=== PATIENT | female | born 1960 | race African-American/Black ===

== ENCOUNTER 2016-10-27 11:53 | Inpatient (IN) | payer OTHER ==
[~2016-10-27] VITALS: Ht 157.5 cm; Wt 48.5 kg
--- NOTE | ~2016-10-27 | H ---
[facility] [place] [address] HISTORY AND PHYSICAL Name: ESTEFANIA PÉREZ Room #: 308-P ADM IN M.R.#: [id number] Admission: 10/27/16 Attend Phys: Romina Blake MD Discharge: Date of : 64 Report #: [id number] THIS REPORT FOR: //name// CC: FAM unknown Anuj Blake DATE OF SERVICE: 10/27/2016 PRIMARY CARE DOCTOR: Anuj Flores MD. CHIEF COMPLAINT: Confusion. HISTORY OF PRESENT ILLNESS: The patient is a 56-year-old female with a history of chronic pain and I believe substance abuse, She is currently being followed at [facility], presented to the ER secondary to altered mental status. She was currently at group therapy at [facility] today when she was sent over for altered mental status. She reported feeling "confused." Primarily, she is very lethargic. She claims to have been prescribed hydrocodone, oxycodone, as well Xanax at home, although indicates she "I have none of that." She has had a history of cocaine use and is currently at [facility]. Her urine drug screen was positive for benzodiazepine, cocaine, and opiates. She that she has not used in a long time. I attempted to get a hold of her caseworker protective services with her consent, Anuj Davenport at [phone] a couple of times, but could not get a hold of him. She is following commands and answering questions appropriately. She does not have any focal deficits. As stated, she just appears to be very sleepy at this time, but awakens and is appropriate during my exam. According to the ER documentation, she got up this morning and her son called when she was confused at that time. PAST MEDICAL HISTORY: As stated, chronic pain syndrome, substance abuse, currently at [facility]; rheumatoid arthritis, lupus, chronic kidney disease stage 3-4, chronic anemia, prior CVA, anxiety, and migraines. PAST SURGICAL HISTORY: She has had cholecystectomy and appendectomy. SOCIAL HISTORY: She does not smoke, but does use illicit substances and claims to have previously been prescribed [place], oxycodone and Xanax as indicated on her SEP. She also drinks, but is not able to tell me how much. FAMILY HISTORY: Reviewed and is noncontributory. ALLERGIES: TRAMADOL, IBUPROFEN, TRAZODONE, and LEVAQUIN. MEDICATIONS: Reported medications Xanax 1 mg at bedtime, Ambien 5 mg at bedtime, indapamide 2.5 daily, Trintellix 15 mg at bedtime, oxy p.r.n., [address] [address] HISTORY AND PHYSICAL Name: ESTEFANIA PÉREZ Room #: 308-P [facility] IN M.R.#: [id number] Admission: 10/27/16 Attend Phys: Romina Blake MD Discharge: Date of : 64 Report #: [id number] p.r.n., and Remeron 15 at bedtime. PHYSICAL EXAMINATION: VITAL SIGNS: Temperature of 98, pulse 68, blood pressure 113/60 with O2 sat 100% on room air. GENERAL: She is sleepy, but arousable and follows commands, answers questions and is able to speak in complete sentences. She has no facial droop. HEENT: Normocephalic, atraumatic. Pupils are equally round and reactive to light. No facial droop. Oropharynx is clear. Mucous membranes are dry. NECK: Supple. CARDIOVASCULAR: Regular rate and rhythm. No murmurs. LUNGS: Clear to auscultation bilaterally. No crackles or wheeze. ABDOMEN: Soft, no distention or tenderness. EXTREMITIES: No edema. NEUROLOGIC: As stated, she is sleepy, but she moves all extremities equally and well. She is nonfocal. LABS AND TESTING: Urine drug screen was positive for benzos, cocaine and opiates. UA was positive for leukocyte esterase, 10-30 bacteria, wbc's 0-5. CT of the head without contrast is negative for anything acute. Chest x-ray is negative. White count of 5, H and H of 8.4 and 25, platelets 169. Her previous hemoglobin was 9.6 in July 2015. Her sodium 141, potassium 5.6, and total CO2 of 17. BUN and creatinine of 15 and 4.9. LFTs are negative. Albumin is 2.8. Previous BUN and creatinine are 36 and 3.5 in July of last year. INR is 1.0. ASSESSMENT AND PLAN: 1. Encephalopathy, suspect substance abuse. She has benzos, cocaine and opiates on her drug screen. We will admit her, continue supportive care, consult psychiatry. I attempted to call caseworker protective services twice, Anuj Issac at [phone], but could not get a hold of him. We will hold all her UND[employer]ER HELPER medications at this time. 2. Acute kidney injury on chronic kidney disease secondary to volume depletion. We will continue IV fluids. Check a renal ultrasound and consult renal. 3. Metabolic acidosis. Check an ABG again. Renal will be consulted. 4. Chronic anemia, appears to be lower than her previous levels. We will check iron indices. Continue Protonix and check occult. 5. History of lupus and rheumatoid arthritis. She is currently not on any prednisone at this time or any current treatment as I can see. 6. Prior history of cerebrovascular accident. We will start her on baby aspirin, although she is not on any of that at home. [facility] [address] [place] [address] HISTORY AND PHYSICAL Name: ESTEFANIA PÉREZ Room #: 308-P ADM IN .R.#: [id number] Admission: 10/27/16 Attend Phys: Romian Blake MD Discharge: Date of : 64 Report #: [id number] 7. Anxiety. Again, we will hold her UND[employer] HELPER meds and consult psychiatry. 8. Deep venous thrombosis prophylaxis with SCDs. By: [id number] Romina Blake MD /nt
--- NOTE | ~2016-10-27 | EKG ---
[address] [place] [address] ELECTROCARDIOGRAM REPORT Name: ESTEFANIA PÉREZ Room #: 308-P ADM IN M.R.#: [id number] Admission: 10/27/16 Attend Phys: Shelton Yo DO Discharge: Date of : 64 Report #: [id number] THIS REPORT FOR: //name// [facility] ED Test Date: 2016-10-27 Test Time: 13:40:17 Pat Name: ESTEFANIA PÉREZ Department: Room: 308 Gender: F Molder Punch: Michael LIRIANO : 1960 Requested By: Linda Graham Order Number: [id number] MD: Jamie Jensen Measurements Intervals [place] Rate: 67 P: 55 NE: 158 QRS: 39 QRSD: 91 T: 21 QT: 411 QTc: 434 Interpretive Statements Sinus rhythm Normal tracing Compared to ECG 02/11/2014 16:04:40 No significant changes Electronically Signed On 10-28-2016 8:31:00 CDT by Jamie Jensen [email or web address] <ELECTRONICALLY SIGNED> By: Jamie Jensen MD, [facility] 10/28/16 0831 1340 1340 Jamie Jensen MD, FACC /EPI
--- NOTE | ~2016-10-27 | HC ---
[facility] [place] [address] CONSULTATION Name: ESTEFANIA PÉREZ Room #: 308-P ADM IN M.R.#: [id number] Admission: 10/27/16 Attend Phys: Shelton Yo DO Discharge: Date of : 64 Report #: [id number] THIS REPORT FOR: //name// CC: FAM unknown Shelton Yo DATE OF CONSULTATION: 10/27/2016. CHIEF COMPLAINT: The patient identification is 56-year-old known from previous [facility] admissions, presents with altered mental status and advanced renal insufficiency. HISTORY OF PRESENT ILLNESS: This 56-year-old woman has a longstanding history of systemic lupus erythematosus. Her history dates back to at least 2001 when she was initially seen by Dr. Kiran of our group. She had active systemic lupus erythematosus at that time and has been treated with intravenous cyclophosphamide. She has had a previous methicillin-resistant Staphylococcus aureus bacteremia related to a [place] catheter in 2001. She has been admitted in every subsequent years since 2001 for one or another complications of systemic lupus erythematosus or advancing renal insufficiency. Her systemic lupus erythematosus has been relatively quiescent over the recent past. Her creatinine has been stable in the 3 range. She has had an episode of acute kidney injury with creatinine as high as 5.9. The patient has a complicated medical history which includes aside from lupus erythematosus and renal insufficiency, a history of substance abuse. She has been known to abuse cocaine in the past. She states that she has been under a rehab program for the last 4 months and has not use any substances over that period of time. The patient was found at [facility] where she is being followed for substance abuse in a confused state. She was brought to the Emergency Room because of her confusion. Evaluation in the Emergency Room revealed a drug screen, which was positive for benzodiazepines, cocaine and opiates. The patient expresses utter dismay of this and cannot understand how these could be positive since she has not used any substances. PAST MEDICAL HISTORY: Remarkable as described above. She has a history of hypertension, bacteremia with methicillin-resistant Staphylococcus aureus as described. She has had a previous CVA and sufferes from chronic migraines. She has undergone previous cholecystectomy and appendectomy. FAMILY HISTORY: Negative for renal disease. ALLERGIES: REPORTED TO TRAMADOL, IBUPROFEN, TRAZODONE, LEVAQUIN. MEDICATIONS ON ADMISSION: Includes Xanax, Ambien, indapamide, Trintellix, [address] [address] CONSULTATION Name: ESTEFANIA PÉREZ Room #: 308-P [facility] IN ..#: [id number] Admission: 10/27/16 Attend Phys: Shelton Yo DO Discharge: Date of : 64 Report #: [id number] [place], and Remeron. REVIEW OF SYSTEMS: Remarkable for the absence of pedal edema. She denies epistaxis or headaches. She denies shortness of breath, productive cough, fevers, chills, sweats, shortness of breath, chest pain, palpitations, nausea, vomiting, diarrhea or constipation. PHYSICAL EXAMINATION: GENERAL: Reveals a chronically ill, woman who appears older than her stated age, in no acute distress. VITAL SIGNS: Blood pressure 147/90. Temperature 97.8, pulse 65, respirations 16. SKIN: Warm and dry without rash or erythema. EXTREMITIES: There are chronic arthritic changes involving the hands bilaterally. There is no active information. There is no edema present. There is no gross adenopathy present. HEENT: The head is normocephalic and atraumatic. The sclerae are white and conjunctivae are not injected. The pharynx is benign. NECK: Supple. LUNGS: [place] are grossly clear. CARDIOVASCULAR: Reveals a regular rate and rhythm without rub. ABDOMEN: Soft and nontender. NEUROLOGIC: Reveals the patient to be a good historian with a nonfocal exam. LABORATORY STUDIES: Available at the time of consultation, sodium 141, potassium 5.6, chloride 109, CO2 17, BUN 58, creatinine 4.9, glucose 135. Calcium 9.2. Albumin 2.8. White blood cell count 5000, hemoglobin 8.4, hematocrit 25.3, platelet count 169,000. Urinalysis on admission revealed clear yellow urine, specific gravity 1.020, pH 5.5, 2+ protein, 3+ blood, 1+ leukocytes, 10-30 moderate bacteria seen and culture pending. ASSESSMENT: 1. Altered mental status in this patient with a history of cocaine and substance abuse. The patient presently denies this, but the tox screen is positive. I suspect that she has been using substances again. 2. Chronic kidney disease with acute kidney injury superimposed. Hopefully, her creatinine will improve somewhat with hydration. 3. Suspected urinary tract infection. 4. Longstanding systemic lupus erythematosus. 5. History of previous methicillin-resistant Staphylococcus aureus bacteremia in 2001. PLAN: The patient is being appropriately cultured and treated with antibiotics. We await culture results. We will hydrated her with bicarbonate containing isotonic fluids and follow serial laboratory studies, I and O and daily weights. [address] [address] CONSULTATION Name: ESTEFANIA PÉREZ Room #: 308-P ADM IN M.R.#: [id number] Admission: 10/27/16 Attend Phys: Shelton Yo DO Discharge: Date of : 64 Report #: [id number] Thank you for this challenging consultation. We will follow with you. By: [id number] Walt Alvarez MD /mandy
[2016-10-27 11:53] VITALS: BP 116/69
[~2016-10-27 11:53] MED LIST: ACETAMINOPHEN325 M1 PO; ALPRAZOLAM PO; AMBIEN 10 MG TA10 MG PO; AMBIEN 5 MG TABL5 M1 PO; AMBIEN 5 MG TABL5 MG PO; ASPIRIN325 PO; AUGMENTIN 500-1 EACH PO; BACTRIM DS TAB1 EACH PO; BENADRYL25 MG PO; CEFDINIR PO; CELLCEPT 250 M250 M1 PO; CELLCEPT500 MG PO; CIPRO500 MG PO; CLEOCIN HCL300 MG PO; CYMBALTA30 MG PO; DESYREL50 MG PO; FENTANYL PA25 MCG/HR TRANSDERM; FLAGYL500 MG PO; HYDRALAZINE 2525 M1 PO; HYDROCODON-ACE1 EAC5 PO; HYDROCODON-ACE1 EAC7 PO; HYDROXYCHLOROQ200 M1 PO; HYDROXYZINE HCL50 MG PO; LEVOTHYROXIN0.025 MG PO; MEDROLDOSEPACK PO; NOHOMEMEDICATIONS; ONDANSETRON HCL4 M2 PO; OXYCODONE HCL15 MG PO; OXYCODONE HCL5 M1 PO; OXYCODONE-ACET1 EAC2 PO; OXYCONTIN10 M1 PO; OXYCONTIN20 M1 PO; OXYCONTIN20 MG PO; PEPCID40 MG PO; PERCOCET 10-321 EACH; PERCOCET 10-321 EACH PO; PERCOCET 5-3251 EACH PO; PRAVACHOL40 MG PO; PREDNISONE 10 M10 M1 PO; PREDNISONE 20 M20 M1 PO; PREDNISONE 5 MG5 M1 PO; PREDNISONE PO; PREDNISONE50 MG PO; ROXICODONE5 MG PO; TRAZODONE 150150 M1 PO; VANCOMYCIN PO; XANAX 0.5 MG0.5 M1 PO; XANAX 0.5 MG0.5 MG PO; XANAX PO; XANAX XR1 MG PO; XANAX1 MG PO; ZANAFLEX2 M1 PO; ZOFRAN4 MG PO; ZPAK PO
[2016-10-27 12:27] LABS: URINE BILIRUBIN NEGATIVE (Negative); URINE BLOOD 3+ (Negative); URINE COLOR YELLOW; URINE GLUCOSE-RANDOM* NEGATIVE (Negative); URINE KETONES NEGATIVE (Negative); URINE NITRITE NEGATIVE (Negative); URINE PROTEIN (DIPSTICK) 2+ (Negative); URINE UROBILINOGEN 0.2 E.U./dl (0.2-1.0)
[2016-10-27 12:37] LABS: CASTS None Seen /LPF (None Seen); SQUAMOUS 0-3 Few /LPF (0-3); TRANSITIONAL EPITHEL CELL 0-3 Few /LPF (None Seen); URINE WBC 0-5 Rare /HPF (0-5)
[2016-10-27 12:38] LABS: CRYSTALS None Seen /LPF (None Seen); URINE RBC 0-2 Rare /HPF (0-2)
[2016-10-27 12:42] LABS: AMP/METHAMP Negative (Negative); BARBITURATES Negative (Negative); BENZODIAZEPINES POSITIVE (Negative); COCAINE POSITIVE (Negative); METHADONE Negative (Negative); OPIATES POSITIVE (Negative); PCP Negative (Negative); THC Negative (Negative)
[2016-10-27 13:05] LABS: ABSOLUTE NEUTROPHILS 3.4 thou/uL (1.4-8.2); BASOPHILS 0.4 % (0.0-2.0); EOSINOPHILS 2.9 % (0.0-3.0); HEMATOCRIT 25.3 % (37.0-47.0); HEMOGLOBIN 8.4 gm/dL (12.0-15.0); LYMPHOCYTES 24.1 % (24.0-44.0); MCH 26.9 pg (26.0-34.0); MCHC 33.2 g/dL (28.0-37.0); MONOCYTES 5.3 % (1.0-8.0); PLATELET COUNT 169 thou/uL (150-400); POLYS 67.3 % (36.0-66.0); RBC 3.12 mil/uL (4.20-5.00); RDW 15.9 % (10.5-14.5)
[2016-10-27 13:06] LABS: MANUAL DIFF NO
[2016-10-27 13:11] LABS: ANION GAP 15 mmol/L (7-16); BUN 58 mg/dL (7-18); CALCIUM 9.2 mg/dL (8.5-10.1); CHLORIDE 109 mmol/L (98-107); CO2 17 mmol/L (21-32); CREATININE 4.9 mg/dL (0.6-1.0); GLUCOSE 74 mg/dL (74-106); POTASSIUM 5.6 mmol/L (3.5-5.1); SODIUM 141 mmol/L (136-145)
[2016-10-27 13:18] LABS: ALBUMIN 2.8 g/dL (3.4-5.0); ALKALINE PHOSPHATASE 89 U/L (46-116); SGOT 135 U/L (15-37); SGPT 30 U/L (30-65); TOTAL BILIRUBIN 0.4 mg/dL (<0.1-1.0); TOTAL PROTEIN 6.4 g/dL (6.4-8.2); TROPONIN-I < 0.04 ng/mL (<0.04-0.07)
[2016-10-27] MEDS ORDERED: INDAPAMIDE2.5 MG PO (13:32)
[2016-10-27] MEDS ORDERED: BRINTELLIX10 MG PO (13:32)
[2016-10-27] MEDS ORDERED: OXYCODONE HCL5 MG PO (13:33)
[2016-10-27] MEDS ORDERED: HYDROCODON-ACE1 EAC7 PO (13:33)
[2016-10-27] MEDS ORDERED: REMERON15 MG PO (13:34)
[2016-10-27 13:49] LABS: PROTIME 10.3 Seconds (9.3-11.4)
[2016-10-27 14:36] VITALS: BP 113/60
[2016-10-27 15:16] VITALS: BP 147/90
[2016-10-27 15:36] LABS: % SATURATION 18 % (20-39); IRON 23 ug/dL (50-170); TIBC 128 ug/dL (250-450); UIBC 105 ug/dL
[2016-10-27 16:11] LABS: ABG SAMPLE TYPE ARTERIAL; BE(vivo) -8.5 mmol/L (-2 to +3); HCO3 17.5 mmol/L (22.0-26.0); LACTATE 1.23 mmol/L (0.5-2.0); O2(CT) 10.6 mL/dL (15.0-23.0); O2Hb 92.6 % (92.0-98.0); PCO2 38.3 mmHg (35.0-45.0); PO2 82.3 mmHg (80.0-100.0); sO2 94.9 % (92.0-98.0); tCO2 18.7 mmol/L (24.0-30.0)
[2016-10-27 16:12] LABS: STICK SITE R.RADIAL; pH 7.278 (7.360-7.450)
[2016-10-27 19:55] VITALS: BP 109/73
[2016-10-27 23:15] VITALS: BP 105/67
[2016-10-28 04:15] VITALS: BP 101/66
[2016-10-28 06:55] LABS: ALBUMIN 2.2 g/dL (3.4-5.0); CALCIUM 7.9 mg/dL (8.5-10.1); PHOSPHORUS 4.4 mg/dL (2.5-4.9); POTASSIUM 4.9 mmol/L (3.5-5.1)
[2016-10-28 06:56] LABS: CREATININE 3.9 mg/dL (0.6-1.0)
[2016-10-28 08:17] LABS: BASOPHILS 0.6 % (0.0-2.0); EOSINOPHILS 4.5 % (0.0-3.0); HEMATOCRIT 22.6 % (37.0-47.0); HEMOGLOBIN 7.5 gm/dL (12.0-15.0); LYMPHOCYTES 27.7 % (24.0-44.0); MCH 26.7 pg (26.0-34.0); MCHC 33.2 g/dL (28.0-37.0); MCV 80.4 fL (80.0-100.0); MONOCYTES 5.8 % (1.0-8.0); PLATELET COUNT 144 thou/uL (150-400); POLYS 61.4 % (36.0-66.0); RBC 2.81 mil/uL (4.20-5.00); RDW 15.8 % (10.5-14.5); WBC 3.2 thou/uL (4.0-11.0)
[2016-10-28 08:29] LABS: MANUAL DIFF NO
[2016-10-28 09:33] VITALS: BP 122/65
[2016-10-28 11:59] VITALS: BP 118/76
[2016-10-28 12:52] VITALS: BP 118/76
[2016-10-30 09:10] LABS: ANTI-RNP 0.2 AI (0.0-0.9)
== END 2016-10-28 14:14 | disposition home or self-care (01) | DRG 682 ==
LOC: ER 11:53 → EROBS 13:43 → 3N 13:43
PROVIDERS: Family Medicine; Internal Medicine Nephrology; Nurse Practitioner Family
DX: N17.9 Acute kidney failure, unspecified (principal); G93.40 Encephalopathy, unspecified; N39.0 Urinary tract infection, site not specified; E87.2 Acidosis; M32.9 Systemic lupus erythematosus, unspecified; M19.90 Unspecified osteoarthritis, unspecified site; E11.22 Type 2 diabetes mellitus with diabetic chronic kidney disease; I12.9 Hypertensive chronic kidney disease with stage 1 through stage 4 chronic kidney disease, or unspecified chronic kidney disease; N18.4 Chronic kidney disease, stage 4 (severe); F32.9 Major depressive disorder, single episode, unspecified; D64.9 Anemia, unspecified; F14.10 Cocaine abuse, uncomplicated; G43.909 Migraine, unspecified, not intractable, without status migrainosus; E87.5 Hyperkalemia; G89.4 Chronic pain syndrome; M06.9 Rheumatoid arthritis, unspecified; F41.9 Anxiety disorder, unspecified; E86.9 Volume depletion, unspecified; Z86.73 Personal history of transient ischemic attack (TIA), and cerebral infarction without residual deficits; Z90.49 Acquired absence of other specified parts of digestive tract; Z88.1 Allergy status to other antibiotic agents; Z88.8 Allergy status to other drugs, medicaments and biological substances; Z88.6 Allergy status to analgesic agent; Z86.14 Personal history of Methicillin resistant Staphylococcus aureus infection
CPT/HCPCS: 10096

== ENCOUNTER 2017-03-11 20:04 | Emergency (ER) | payer OTHER ==
[~2017-03-11] VITALS: Ht 157.5 cm; Wt 50.8 kg
[~2017-03-11 20:04] MED LIST changes: +BRINTELLIX10 MG PO; +INDAPAMIDE2.5 MG PO; +OXYCODONE HCL5 MG PO; +REMERON15 MG PO
[2017-03-11 21:40] LABS: HEMATOCRIT 27.1 % (37.0-47.0); HEMOGLOBIN 8.9 gm/dL (12.0-15.0); MCH 29.3 pg (26.0-34.0); MCHC 32.8 g/dL (28.0-37.0); MCV 89.2 fL (80.0-100.0); RBC 3.04 mil/uL (4.20-5.00); RDW 17.3 % (10.5-14.5); WBC 4.3 thou/uL (4.0-11.0)
[2017-03-11 21:50] LABS: CALCIUM 8.6 mg/dL (8.5-10.1); CREATININE 2.8 mg/dL (0.6-1.0); MAGNESIUM 1.3 mg/dL (1.8-2.4); POTASSIUM 4.8 mmol/L (3.5-5.1)
[2017-03-11 21:56] LABS: AMP/METHAMP Negative (Negative); BARBITURATES Negative (Negative); BENZODIAZEPINES Negative (Negative); COCAINE POSITIVE (Negative); METHADONE Negative (Negative); OPIATES Negative (Negative); PCP Negative (Negative); THC Negative (Negative)
== END 2017-03-11 22:25 | disposition home or self-care (01) ==
LOC: ER 20:04
PROVIDERS: Physician Assistant
DX: G89.29 Other chronic pain (principal); M25.552 Pain in left hip; M87.059 Idiopathic aseptic necrosis of unspecified femur; F14.10 Cocaine abuse, uncomplicated; M32.9 Systemic lupus erythematosus, unspecified; F11.10 Opioid abuse, uncomplicated; M19.90 Unspecified osteoarthritis, unspecified site; N18.9 Chronic kidney disease, unspecified; F41.9 Anxiety disorder, unspecified; E11.22 Type 2 diabetes mellitus with diabetic chronic kidney disease; F10.99 Alcohol use, unspecified with unspecified alcohol-induced disorder; Z86.73 Personal history of transient ischemic attack (TIA), and cerebral infarction without residual deficits; Z86.2 Personal history of diseases of the blood and blood-forming organs and certain disorders involving the immune mechanism; Z88.6 Allergy status to analgesic agent; Z88.1 Allergy status to other antibiotic agents